=== PATIENT | female | born 1965 | race Caucasian/White ===

== ENCOUNTER 2024-04-22 20:45 | Emergency (ER) | payer OTHER, SELFPAY ==
[2024-04-22 20:52] VITALS: BP 145/68; PULSE 84; RESP 18; TEMP 36.8; O2SAT 98; BMI 24.2
--- NOTE | 2024-04-22 21:00 | DI.RAD.S_ITS ---
PROCEDURE: XR FINGER LT MIN 2V INDICATIONS: sliced finger with immersion relish blender TECHNIQUE: AP hand, 2 views of the 1st finger(s) acquired. COMPARISON: None. FINDINGS: Bones: No fractures or dislocations. No suspicious bony lesions. Soft tissues: Soft tissue defect of the 1st digit. IMPRESSION: No acute fracture is seen. Dictated by: Heron Payne M.D. on 04/22/2024 at 21:30 Approved by: Heron Payne M.D. on 04/22/2024 at 21:31
--- NOTE | 2024-04-22 21:15 | ED_ITS ---
HPI - Extremity Injury (Upper) General Chief Complaint: Extremity Injury, Upper Stated Complaint: lt index finger cut with immersion store stocker Time Seen by Provider: 04/22/24 21:06 Source: patient Mode of arrival: Ambulatory History of Present Illness HPI narrative: 58yoF presents for L index finger injury. Accidental cut with immersion store stocker blades. UTD on tetanus. Able to move index finger with full ROM. Related Data Allergies Allergy/AdvReac Type Severity Reaction Status Date / Time No Known Drug Allergies Allergy Verified 04/22/24 20:52 Patient History Surgical History Status post delivery Status post delivery History of tonsillectomy Family History Brother Age: 60 Hypertension Brother Age: 62 Cancer Father Hypertension Hyperlipidemia Mother Age: 96 Hyperlipidemia Sister Age: 66 Diabetes mellitus Social History Smoking Status: Never smoker Smoking Status: Never smoker alcohol intake frequency: a few times a week Substance Use Type: does not use Exam Initial Vital Signs Initial Vital Signs: Vital Signs Temperature 98.3 F 04/22/24 20:52 Pulse Rate 84 04/22/24 20:52 Respiratory Rate 18 04/22/24 20:52 Blood Pressure 145/68 H 04/22/24 20:52 Pulse Oximetry 98 04/22/24 20:52 Oxygen Delivery Method Room Air 04/22/24 20:52 Const: Awake, alert, uncomfortable appearing MSK: laceration medial L index finger. Full ROM. Cap refill <2sec Skin: Warm, Dry, 2.5cm ragged, oblique laceration medial L index finger Neuro: AO x3, CN II-XII grossly intact, moves all extremities Procedures Laceration Repair Laceration 1: Site: hand Side (If applicable): left Size (cm): 2.5 Description: irregular and clean Depth: simple, single layer Pre-repair: wound explored, irrigated extensively and deep structures intact Skin layer closed with: nylon Skin layer suture size: 5-0 Number of sutures: 7 Nerve Block Nerve Block 1: Local Anesthetic: lidocaine 2% Amount of anesthesia used (mL): 5 Side: left Nerve Blocks: digital Procedure Successful: Yes Patient Tolerated Procedure: Well and No complications Course Orders Ordered: ED Orders 04/22/24 21:00 XR finger LT min 2V Stat Discontinued Medications Lidocaine HCl (Lidocaine 2% Inj Sdv 5ml) 2 ml INJ NOW ONE Stop: 04/22/24 21:15 Last Admin: 04/22/24 21:20 Dose: 2 ml Documented By: ASHLEY Vital Signs Vital signs: Vital Signs - 8 hr 04/22/24 20:52 04/22/24 22:46 Temperature 98.3 F 97.9 F Pulse Rate 84 80 Respiratory Rate 18 20 Blood Pressure 145/68 H 111/53 L Pulse Oximetry 98 98 Oxygen Delivery Method Room Air Room Air MDM - Extremity Injury (Upper) Differential Diagnosis Differential diagnosis: Likely other (laceration, abrasion, tendon injury) Imaging Data Extremity x-ray #1: Radiologist's Impression: PROCEDURE: XR FINGER LT MIN 2V INDICATIONS: sliced finger with immersion store stocker TECHNIQUE: AP hand, 2 views of the 1st finger(s) acquired. COMPARISON: None. FINDINGS: Bones: No fractures or dislocations. No suspicious bony lesions. Soft tissues: Soft tissue defect of the 1st digit. IMPRESSION: No acute fracture is seen. Dictated by: Heron Payne M.D. on 04/22/2024 at 21:30 Approved by: Heron Payne M.D. on 04/22/2024 at 21:31 [facility] Narrative Medical decision making narrative: Accidental finger laceration. Digital block performed, deep structures intact on exam. Repaired per procedure note. Unfortunately due to the irregularity of the laceration from the blades there will likely be some degree of scarring and some of the smaller flaps of skin may scab and fall off. Patient informed that this will likely happen. Wound was dressed, she was given strict ED return precautions. Discharge Plan Departure Patient Disposition: Home Clinical Impression: Finger laceration Instructions: DI for Laceration Repair -- Finger Activity Restrictions/Additional Instructions: Your x-ray today did not show any fracture. The skin of your finger was somewhat shredded by the emergent store stocker blades. If you notice scabbing of rhona e of the strips of your skin this is normal. I do not see any evidence of tendon injury on my assessment today. If you have decreased movement of your finger or decreased forestry workers strength then please return immediately to the emergency department. Sutures will need to be removed in 5-7 days. Keep your fingers clean and dry. If you get the finger wet then gently pat dry. If you notice any redness, unusual swelling, or drainage please return to the emergency department for repeat assessment. When your skin starts healing you may place either bacitracin or vitamin-E oil on the healed skin to help decrease scarring and increase range of motion Referrals: Luke Jorgensen MD [Primary Care Provider] - Stand Alone Forms: Patient Portal/API/Survey
[2024-04-22] MEDS: LIDOCAINE 2% INJ SDV 5ML 2 ML INJ (21:20)
--- NOTE | 2024-04-22 22:45 | PC.NURSE ---
Wound to L index finger cleansed with NS. Nonadherent dressing applied followed by bulky gauze wrap. Pt instructed in wound/suture care, pt verbalized understanding.
[2024-04-22 22:46] VITALS: BP 111/53; PULSE 80; RESP 20; TEMP 36.6; O2SAT 98
== END 2024-04-22 22:47 | disposition home or self-care (01) ==
PROVIDERS: Emergency Provider Emergency Medicine; PCP Family Medicine
DX: S61.211A Laceration without foreign body of left index finger without damage to nail, initial encounter (principal); W26.8XXA Contact with other sharp object(s), not elsewhere classified, initial encounter
CPT/HCPCS: 12001; 64450; 73140; 99283